=== PATIENT | male | born 1975 | race Caucasian/White ===

== ENCOUNTER 2019-09-16 15:35 | Inpatient (IN) | payer OTHER, MEDICAID ==
[~2019-09-16] VITALS: Ht 182.9 cm; Wt 50.8 kg
[2019-09-16 15:40] VITALS: BP_SYST 120
[2019-09-16] MEDS ORDERED: NACL 0.9% 1,000 ML IV ONE (16:00)
[2019-09-16 16:28] LABS: BASOPHILS % (AUTO) 0.4 % (0.0-2.0); EOSINOPHILS % (AUTO) 0.3 % (0.0-4.0); HEMOGLOBIN 16.3 g/dL (14.0-18.0); LYMPHOCYTES # (AUTO) 0.9 K/uL (1.0-5.5); LYMPHOCYTES % (AUTO) 10.2 % (20.5-51.5); MEAN CORPUSCULAR HEMOGLOBIN 32 pg (27-31); MEAN CORPUSCULAR HGB CONC 34 % (32-36); MEAN CORPUSCULAR VOLUME 94 fL (79.0-98.0); MONOCYTES # (AUTO) 0.8 K/uL (0.0-1.0); MONOCYTES % (AUTO) 8.6 % (1.7-9.3); NEUTROPHILS # (AUTO) 7.1 K/uL (1.8-7.7); NEUTROPHILS % (AUTO) 80.5 % (40.0-70.0); PLATELET COUNT (AUTO) 233 K/uL (130-430); RED BLOOD CELL COUNT(AUTO) 5.12 MIL/uL (4.2-6.2); RED CELL DISTRIBUTION WIDTH 13.1 % (9.0-15.0); WHITE BLOOD COUNT (AUTO) 8.8 K/uL (4.8-10.8)
[2019-09-16 16:29] LABS: CALCIUM 9.1 mg/dL (8.4-11.0); CREATININE 1.06 mg/dL (0.55-1.30); POTASSIUM 4.1 mmol/L (3.5-5.1)
[2019-09-16 16:30] LABS: INR 1.1 (0.80-1.20); PROTHROMBIN TIME 11.3 SECS (9.5-12.5)
[2019-09-16 16:34] LABS: ALBUMIN 3.7 g/dL (3.4-4.8); TOTAL BILIRUBIN 0.5 mg/dL (0.0-1.0)
[2019-09-16] MEDS ORDERED: ONDANSETRON HCL 4 MG/2 ML VIAL IM ONE (17:30)
[2019-09-16] MEDS ORDERED: LORazepam 2 MG/ML VIAL IVP ONE (18:00)
[2019-09-16] MEDS ORDERED: ONDANSETRON HCL 4 MG/2 ML VIAL IVP ONE (18:00)
[2019-09-16] MEDS ORDERED: CALC-7 PO (19:08)
[2019-09-16] MEDS ORDERED: FAMO20TA8 PO (19:08)
[2019-09-16] MEDS ORDERED: ACET-2165 PO (19:08)
[2019-09-16] MEDS ORDERED: OMEP20CA11 PO (19:08)
[2019-09-16 19:12] VITALS: BP_SYST 137
[2019-09-16] MEDS ORDERED: cloNIDine HCL 0.1 MG TABLET PO PRN (20:00)
[2019-09-16] MEDS ORDERED: ONDANSETRON HCL 4 MG/2 ML VIAL IVP PRN (20:00)
[2019-09-16] MEDS ORDERED: guaiFENesin 200 MG/10 ML UDC PO PRN (20:00)
[2019-09-16] MEDS ORDERED: ACETAMINOPHEN 325 MG TABLET PO PRN ×2 (20:00)
[2019-09-16] MEDS ORDERED: LORazepam 2 MG/ML VIAL IVP PRN (20:00)
[2019-09-16] MEDS ORDERED: MORPHINE 2 MG/ML INJ. SYRINGE IVP PRN (20:00)
[2019-09-16 20:15] VITALS: BP_SYST 137
[2019-09-16] MEDS: PANTOPRAZOLE SODIUM 40 MG/VIAL (PROTONIX) IVP SCH (21:11)
[2019-09-16] MEDS: HEPARIN SODIUM,PORCINE 5000 UNITS/ML VIAL SUBCUT SCH (21:13)
[2019-09-16] MEDS: LORazepam 2 MG/ML VIAL IVP PRN (21:50)
[2019-09-16] MEDS: D5NS 1,000 ML IV SCH (21:57)
[2019-09-17 01:08] VITALS: BP_SYST 91
[2019-09-17 06:40] LABS: CALCIUM 8.6 mg/dL (8.4-11.0); CREATININE 1.17 mg/dL (0.55-1.30); POTASSIUM 3.8 mmol/L (3.5-5.1)
[2019-09-17] MEDS: D5NS 1,000 ML IV SCH ×2 (06:43→17:28)
[2019-09-17 08:05] VITALS: BP_SYST 107
[2019-09-17] MEDS: PANTOPRAZOLE SODIUM 40 MG/VIAL (PROTONIX) IVP SCH ×2 (08:59→20:39)
[2019-09-17] MEDS: HEPARIN SODIUM,PORCINE 5000 UNITS/ML VIAL SUBCUT SCH ×2 (09:00→20:33)
[2019-09-17] MEDS: MEPERIDINE HCL/PF 50 MG/ML AMP ONE ×2 (10:05→10:08)
[2019-09-17] MEDS: MIDAZOLAM HCL 5 MG/5 ML VIAL ONE ×2 (10:05→10:09)
[2019-09-17 12:00] VITALS: BP_SYST 107
[2019-09-17 16:02] LABS: BILIRUBIN,URINE NEGATIVE (NEGATIVE); BLOOD, URINE NEGATIVE (NEGATIVE); CLARITY/URINE CLEAR (CLEAR); COLOR,URINE YELLOW (YELLOW); GLUCOSE,URINE NEGATIVE (NEGATIVE); KETONES,URINE NEGATIVE (NEGATIVE); LEUKOCYTE ESTERASE ,URINE NEGATIVE (NEGATIVE); NITRITE, URINE NEGATIVE (NEGATIVE); PH,URINE 6.5 (5.0-8.0); PROTEIN URINE NEGATIVE (NEGATIVE); UROBILINOGEN,URINE 0.2 (0.2-1.0)
[2019-09-17 16:30] VITALS: BP_SYST 137
[2019-09-17] MEDS: LORazepam 2 MG/ML VIAL IVP PRN (16:37)
[2019-09-17 20:10] VITALS: BP_SYST 119
[2019-09-18 00:03] VITALS: BP_SYST 113
[2019-09-18] MEDS: LORazepam 2 MG/ML VIAL IVP PRN ×4 (01:54→22:30)
[2019-09-18] MEDS: D5NS 1,000 ML IV SCH ×3 (03:24→22:47)
[2019-09-18 06:07] LABS: ALBUMIN 2.9 g/dL (3.4-4.8); CALCIUM 8.3 mg/dL (8.4-11.0); CREATININE 0.94 mg/dL (0.55-1.30); PHOSPHORUS 2.6 mg/dL (2.7-4.5); POTASSIUM 3.6 mmol/L (3.5-5.1); TOTAL BILIRUBIN 0.8 mg/dL (0.0-1.0)
[2019-09-18 07:09] LABS: BASOPHILS # (AUTO) 0.1 K/uL (0.0-0.2); BASOPHILS % (AUTO) 1.1 % (0.0-2.0); EOSINOPHILS # (AUTO) 0.2 K/uL (0.0-0.4); EOSINOPHILS % (AUTO) 4.3 % (0.0-4.0); HEMATOCRIT 42.3 % (36-54); HEMOGLOBIN 14.3 g/dL (14.0-18.0); LYMPHOCYTES # (AUTO) 1.1 K/uL (1.0-5.5); LYMPHOCYTES % (AUTO) 23.9 % (20.5-51.5); MEAN CORPUSCULAR HEMOGLOBIN 32 pg (27-31); MEAN CORPUSCULAR HGB CONC 34 % (32-36); MEAN CORPUSCULAR VOLUME 95 fL (79.0-98.0); MONOCYTES # (AUTO) 0.3 K/uL (0.0-1.0); MONOCYTES % (AUTO) 6.4 % (1.7-9.3); NEUTROPHILS # (AUTO) 2.9 K/uL (1.8-7.7); NEUTROPHILS % (AUTO) 64.3 % (40.0-70.0); PLATELET COUNT (AUTO) 168 K/uL (130-430); RED BLOOD CELL COUNT(AUTO) 4.43 MIL/uL (4.2-6.2); RED CELL DISTRIBUTION WIDTH 13.3 % (9.0-15.0)
[2019-09-18 07:38] LABS: WHITE BLOOD COUNT (AUTO) 4.5 K/uL (4.8-10.8)
[2019-09-18 08:00] VITALS: BP_SYST 130
[2019-09-18] MEDS: PANTOPRAZOLE SODIUM 40 MG/VIAL (PROTONIX) IVP SCH ×2 (09:36→20:32)
[2019-09-18] MEDS: HEPARIN SODIUM,PORCINE 5000 UNITS/ML VIAL SUBCUT SCH ×2 (10:02→20:36)
[2019-09-18 12:06] VITALS: BP_SYST 123
[2019-09-18] MEDS: METOCLOPRAMIDE HCL 10 MG/2 ML VIAL IVP SCH ×2 (13:46→18:22)
[2019-09-18 16:00] VITALS: BP_SYST 98
[2019-09-18 19:22] VITALS: BP_SYST 108
[2019-09-18 22:31] VITALS: BP_SYST 107
[2019-09-19 00:01] VITALS: BP_SYST 90
[2019-09-19] MEDS: METOCLOPRAMIDE HCL 10 MG/2 ML VIAL IVP SCH ×5 (00:14→23:53)
[2019-09-19 04:17] VITALS: BP_SYST 133
[2019-09-19] MEDS: D5NS 1,000 ML IV SCH ×2 (07:30→17:02)
[2019-09-19 07:55] VITALS: BP_SYST 132
[2019-09-19] MEDS: PANTOPRAZOLE SODIUM 40 MG/VIAL (PROTONIX) IVP SCH ×2 (08:21→20:44)
[2019-09-19] MEDS: HEPARIN SODIUM,PORCINE 5000 UNITS/ML VIAL SUBCUT SCH ×2 (08:26→20:46)
[2019-09-19] MEDS: LORazepam 2 MG/ML VIAL IVP PRN ×2 (08:28→17:03)
[2019-09-19 12:00] VITALS: BP_SYST 107
[2019-09-19 16:45] VITALS: BP_SYST 108
[2019-09-19 20:00] VITALS: BP_SYST 100
[2019-09-20] MEDS: LORazepam 2 MG/ML VIAL IVP PRN ×2 (00:45→12:32)
[2019-09-20 01:39] VITALS: BP_SYST 117
[2019-09-20] MEDS: METOCLOPRAMIDE HCL 10 MG/2 ML VIAL IVP SCH (06:01)
[2019-09-20 08:00] VITALS: BP_SYST 140
[2019-09-20] MEDS: PANTOPRAZOLE SODIUM 40 MG/VIAL (PROTONIX) IVP SCH (08:14)
[2019-09-20] MEDS: HEPARIN SODIUM,PORCINE 5000 UNITS/ML VIAL SUBCUT SCH (08:19)
[2019-09-20] MEDS: D5NS 1,000 ML IV SCH (08:30)
[2019-09-20] MEDS ORDERED: QUEtiapine FUMARATE 25 MG TABLET PO SCH ×2 (09:00→21:00)
[2019-09-20] MEDS ORDERED: METOCLOPRAMIDE HCL 10 MG TABLET PO PRN (11:30)
[2019-09-20 12:20] VITALS: BP_SYST 121
[2019-09-20 12:24] VITALS: BP_SYST 121
[2019-09-21] MEDS ORDERED: PANTOPRAZOLE SODIUM 40 MG TAB PO SCH (09:00)
== END 2019-09-20 15:00 | DRG 392 ==
LOC: SED 15:35 → SMU 18:26
PROVIDERS: ADMIT Internal Medicine; ATTEND Internal Medicine
PROC: 0DB68ZX Excision of Stomach, Via Natural or Artificial Opening Endoscopic, Diagnostic (ICD-10-PCS; principal; 2019-09-17 09:00)
DX: K29.70 Gastritis, unspecified, without bleeding (principal); Z68.1 Body mass index [BMI] 19.9 or less, adult; K44.9 Diaphragmatic hernia without obstruction or gangrene; F50.89 Other specified eating disorder; G40.909 Epilepsy, unspecified, not intractable, without status epilepticus; F19.10 Other psychoactive substance abuse, uncomplicated; F79 Unspecified intellectual disabilities; Z79.899 Other long term (current) drug therapy
CPT/HCPCS: 36415; 43239; 71045; 74018; 76700-TC; 80048; 80053; 81003; 82140-TC; 82150-TC; 83605; 83690-TC; 83735-TC; 84100-TC; 84443-TC; 84484; 85025; 85610-TC; 85730-TC; 87040-TC; 87081; 99285; C9113; J1644; J2060; J2175; J2250; J2765; J7042